=== PATIENT | female | born 1970 | race Two or more races ===

== ENCOUNTER 2017-02-01 05:17 | Inpatient (IN) | payer MEDICARE ==
[2017-01-30 11:37] LABS: BASOPHILS 0.2 % (0-2); EOSINOPHILS 0.3 % (0-7); HEMATOCRIT 35.4 % (36.0-48.0); HEMOGLOBIN 11.3 g/dL (12-16); IMMATURE GRANULOCYTES 0.2 % (0-5); LYMPHOCYTES 11.1 % (15-50); MCH 29.9 pg (26.0-34.0); MCHC 31.9 g/dL (31.0-37.0); MCV 93.7 fL (80.0-100.0); MEAN PLATELET VOLUME 9.4 fL (7.4-10.4); MONOCYTES 4.7 % (2-11); NEUTROPHILS 83.5 % (40-80); PLATELET COUNT 406 10x3/uL (130-400); RBC 3.78 10x6/uL (4.00-5.40); RDW 14.1 % (11.5-14.5); WBC 10.4 10x3/uL (4.8-10.8)
[2017-01-30 11:49] LABS: CALC OSMOLALITY 280 mosm/kg (275-300); CALCIUM 9.4 mg/dL (8.5-10.1); CARBON DIOXIDE 27.1 mmol/L (21.0-32.0); CHLORIDE - SERUM 102 mmol/L (98-107); CREATININE - SERUM 0.8 mg/dL (0.6-1.3); GLUCOSE 105 mg/dL (74-106); POTASSIUM - SERUM 4.2 mmol/L (3.5-5.1); SODIUM 139 mmol/L (136-145); UREA NITROGEN 21 mg/dL (7-18); eGFR NON AFRICAN AMERICAN 82 mL/min (90-120)
[2017-02-01] VITALS (11 sets, daily range): BP systolic 96–124; BP diastolic 63–73; Ht 157.5 cm; Wt 64.4 kg
[~2017-02-01] VITALS: Ht 157.5 cm; Wt 64.4 kg
[2017-02-01 06:42] LABS: HCG URINE NEGATIVE (NEGATIVE)
--- NOTE | 2017-02-01 07:16 | HP ---
PATIENT: BECKY POE MEDICAL RECORD: [id number] ACCOUNT: [id number] LOCATION:[facility] M : 72 ADMISSION DATE: 02/01/17 HISTORY AND PHYSICAL EXAMINATION HISTORY OF PRESENT ILLNESS: This patient is a 46-year-old 0 female with severe menorrhagia, dysmenorrhea and myomas, uterine size 13 weeks. She desires hysterectomy for relief of intractable symptoms. MEDICAL HISTORY: DRUG ALLERGIES: None known. CURRENT MEDICATIONS: Ibuprofen. Pap smear is negative. REVIEW OF SYSTEMS: Denies chest pain or dyspnea. PAST MEDICAL HISTORY: Negative for heart disease, diabetes, hypertension. Negative for . PREVIOUS SURGERIES: Repair of arm fracture in 1997. FAMILY HISTORY: Positive for pancreatic cancer, diabetes, early menopause. SOCIAL HISTORY: The patient is , smoker. No ethanol use. PHYSICAL EXAMINATION: VITAL SIGNS: Weight is 142 pounds, blood pressure 120/60. HEENT: Unremarkable. LUNGS: Clear. HEART: Regular rate and rhythm. BREAST AND PELVIC: Current, within normal limits other than the uterine enlargement. NEUROLOGICAL: Grossly intact. EXTREMITIES: No cyanosis, clubbing or edema. IMPRESSION: Severe menorrhagia, dysmenorrhea and myomas. PLAN: I discussed the laparoscopically-assisted vaginal hysterectomy, as well as a total abdominal hysterectomy. She desires ovarian conservation if possible. I have discussed the risks of surgery, anesthesia, infection, bleeding, injury to other organs, necessitating repair of other organs. All questions were answered. Evaluation under anesthesia with possible laparoscopically-assisted vaginal hysterectomy and possible total abdominal hysterectomy, possible bilateral salpingo-oophorectomy if indicated. TRANSINT:[id number] Voice Confirmation ID: [id number] DOCUMENT ID: [id number] HISTORY AND PHYSICAL [id number] BECKY POE KARTHIK CAAL MD at 0716 CC: [id number] DICTATION DATE: 01/31/171627 POWERHOUSE ELECTRICIAN: 01/31/171947 [facility] [address] [id number]
--- NOTE | 2017-02-01 14:26 | NUR ---
PATIENT WITH 35CC OR CLEAR URINE TO THE BEDISDE DRAINAGE BAG. SHE RATES PAIN A 3
[2017-02-01 15:16] LABS: HEMATOCRIT 30.2 % (36.0-48.0); HEMOGLOBIN 9.3 g/dL (12-16); MCH 29.5 pg (26.0-34.0); MCHC 30.8 g/dL (31.0-37.0); MCV 95.9 fL (80.0-100.0); MEAN PLATELET VOLUME 9.4 fL (7.4-10.4); RBC 3.15 10x6/uL (4.00-5.40); RDW 14.5 % (11.5-14.5); WBC 15.1 10x3/uL (4.8-10.8)
--- NOTE | 2017-02-01 19:45 | NUR ---
AWAKE DURING INITIAL ROUNDS. INTRODUCED SELF. V/S TAKEN--WITHIN NORMAL. ASSESSMENT DONE. STATUS POST GEETA TODAY. LOW TRANSVERSE ABD INCISION WITH ST-STRIPS INTACT. NO BLEEDING NOTED. REFILLED TREVER PACK TO ABD. INCISION. ON DEMEROL ELECTRICIAN JOURNEYMAN WIREMAN FOR PAIN MANAGEMENT. IVF--D5LR TO R WRIST AREA @ 100cc/hr. IV SITE OK. SCD's TO BOTH LOWER EXTREMITIES TO PREVENT DVT. INSTRUCTED ON USE OF INCENTIVE SPIROMETER--WITH RETURN DEMONSTRATION. BRYANT CATH TO DRAINAGE BAG--EMPTIED. IV PUMP CLEARED. SPOUSE IN THE ROOM.
--- NOTE | 2017-02-01 19:55 | NUR ---
TYLENOL 1G PO GIVEN SCHED EVERY 6hrs. TORADOL 30mg IV GIVEN SVHED. EVERY 8hrs. SEE E-OCT.
--- NOTE | 2017-02-01 21:22 | NUR ---
PEPCID 20mg 1tab PO GIVEN SCHEDULED. SEE E-MAR.
[2017-02-02 00:04] VITALS: BP 113/64
--- NOTE | 2017-02-02 00:04 | NUR ---
V/S STABLE. TYLENOL 1G PO GIVEN SCHED. SEE E-MAR. BRYANT CATH BAG EMPTIED. GOOD URINE OUTPUT. IV PUMP CLEARED. REFILLED ICE BAG TO ABD.
--- NOTE | 2017-02-02 02:10 | NUR ---
EYES CLOSED. LEFT UNDISTURBED.
--- NOTE | 2017-02-02 04:06 | NUR ---
TORADOL 30mg IVP GIVEN. SEE E-MAR. V/S STABLE. REFILLED ICE BAG TO ABD INCISION. BRYANT CATH BAG EMPTIED. IV PUMP CLEARED.
[2017-02-02 04:07] VITALS: BP 102/55
--- NOTE | 2017-02-02 05:57 | NUR ---
PERSONAL LINES INSURANCE AGENT HERE TO DRAW AM LAB. SLEPT FAIRLY WELL DURING THE NIGHT. CONTINUING PLAN OF CARE.
--- NOTE | 2017-02-02 06:14 | NUR ---
TYLENOL 1G PO GIVEN FOR PAIN CONTROL. SEE E-MAR. SPOUSE HERE.
[2017-02-02 06:20] LABS: HEMOGLOBIN 7.8 g/dL (12-16); MCH 29.9 pg (26.0-34.0); MCHC 32.5 g/dL (31.0-37.0); MEAN PLATELET VOLUME 9.3 fL (7.4-10.4); RBC 2.61 10x6/uL (4.00-5.40); RDW 14.3 % (11.5-14.5); WBC 13.4 10x3/uL (4.8-10.8)
[2017-02-02 07:15] VITALS: BP 102/54
--- NOTE | 2017-02-02 07:15 | NUR ---
PT WAS RECEIVED LYING IN BED. SHE IS AWAKE AND ALERT AND AT BEDSIDE. BED IS LOW, SIDE RAILS UP X 2 AND CALL LIGHT. GEN- AWAKE AND ALERT. PAIN IS ABOUT A 4. SHE IS HAVING ABDOMINAL PAIN. STATES SHE HAS HAD SOME GAS. LUNGS- CLEAR. HEART- RRR. ABD - SOFT WITH TENDERNESS, BS+. LOW TRANSVERSE INCISION WITH STERI STRIPS NOTED. CLEAN , DRY AND INTACT. EXT- WITH SCD'S NOTED. WARM AND DRY. PULSES PALPABLE. IV NOTED L WRIST WHICH IS PATENT. D5LR INFUSING AT 125 CC/HR. DEMEROL MEDICAL DRIVER 10 MG Q 10 MIN WITH 4 MG LOCKOUT. BRYANT CATH INTACT WITH GOOD URINE OUTPUT.
--- NOTE | 2017-02-02 07:38 | OP ---
PATIENT NAME: BECKY POE MEDICAL RECORD: [id number] :72 LOCATION:[id number] ADMISSION DATE:02/01/17 SURGEON: MARY CAAL MD DATE OF OPERATION: 02/01/2017 PREOPERATIVE DIAGNOSES: Severe dysmenorrhea, menorrhagia and myomas. POSTOPERATIVE DIAGNOSES: Severe dysmenorrhea, menorrhagia and myomas. PROCEDURE: Supracervical hysterectomy and bilateral salpingectomy. SURGEON: Mary Caal MD ANESTHESIA: General. FINDINGS: A 12-14 week size myomatous uterus, normal appearing ovaries, endometriosis located in the right paracervical area. ESTIMATED BLOOD LOSS: 400 cc. COMPLICATIONS OF SURGERY: None. OPERATIVE NOTE: The patient was taken to the OR and under adequate general anesthesia, prepped and draped in the usual manner for abdominal procedures. A transverse incision was made in the lower abdomen and extended through subcutaneous tissue and fascia, dividing muscles in the midline in Pfannenstiel manner; extending an incision from the symphysis pubis to within 6 cm of the umbilicus, avoiding the bladder and abdominal organs. Exploration of the pelvis revealed the above listed findings. The round ligaments were ligated on the right and left using Tracie clamps and #1 chromic suture. The fallopian tubes and utero-ovarian ligaments were then ligated using Tracie clamps and #1 chromic suture. Dissection was carried inferiorly and endometriosis was encountered in the right paracervical area. The uterine arteries were then clamped and made hemostatic using a #1 chromic suture. The decision was made because of the dense adhesions around the cervix to do a supracervical hysterectomy. The uterine fundus was then amputated using electrocautery. Hemostasis was obtained with #1 chromic sutures in the cardinal ligament. The tubes were then removed using 2-0 chromic sutures and electrocautery. Inspection of the ovaries revealed to be within normal limits. The pelvis was copiously irrigated and suctioned and hemostasis was reevaluated. Gilberto was placed in the pelvis at the cardinal ligaments. Sponge and needle counts were correct. Fascial layer was closed in a running noninterlocking #1 PDS loop suture. Skin incision reapproximated in 2 layers, first layer running noninterlocking 2-0 plain gut suture, followed by a subcuticular 2-0 plain gut suture. Dermabond was applied, a Steri-Strip dressing was applied and the patient went to recovery area in good condition. TRANSINT:[id number] Voice Confirmation ID: [id number] DOCUMENT ID: [id number] OPERATIVE REPORT [id number] BECKY POE BRENDA MD at 0738 CC: [id number] DICTATION DATE: 02/01/17 115 DIRECTOR STRATEGY: 02/01/17 1939 ADM IN [facility] [address] [id number]
--- NOTE | 2017-02-02 08:15 | NUR ---
DR CAAL IS HERE TO SEE PT. NEW ORDERS NOTED. PT IS TO RECEIVE 2 UNITS OG PACKED RED BLOOD CELLS THIS AM.
--- NOTE | 2017-02-02 08:38 | NUR ---
1 ST UNIT OF PRBC'S INITIATED. GAGE CRUZ ASSISTED ME AND SIGNED OFF. RUSSIAN LANGUAGE PROFESSOR WAS D'CD. PRBC'S BEING INFUSED WITH NS NOW AT 75 CC/HR.
--- NOTE | 2017-02-02 09:30 | NUR ---
PT IS RECEIVING BLOOD. VSS. TEMP 98.2. PT OFFERS NO COMPLAINTS. PAIN MED WAS GIVEN FOR PAIN OF 3. 0900 MEDS ALSO GIVEN. AT BEDSDIDE. BED IS LOW, SIDE RAILS UP X 2 AND CALL LIGHT IN REACH.
--- NOTE | 2017-02-02 10:00 | NUR ---
BLOOD TRANSFUSION RATE INCREASED TO 125/CC HR. PTS VS HAVE BEEN STABLE AND HAS BEEN AFEBRILE.
--- NOTE | 2017-02-02 10:34 | NUR ---
LISET PAD CHANGE. SMALL AMOUNT OF LIGHT PINKISH DISCHARGE. INCISION CLEAN AND DRY. STERI STRIPS INTACT. PT STILL USING ICE BAG.
--- NOTE | 2017-02-02 11:40 | NUR ---
PT IS LYING IN BED, LOOKING AT PHONE. VSS. 1 ST UNIT OF BLOOD TRANSFUSED. 2ND UNIT RECEIVED AND WILL BE INITIATED. PT TOLERATED WELL WITH NO SIDE EFFECTS.
--- NOTE | 2017-02-02 11:57 | NUR ---
2ND UNIT OF BLOOD STARTED WITH LISANDRO KNOX RN WITNESS. STARTED BLOOD AT 75 CC/HR WITH NS. BED IS LOW, SIDE RAILS UP X 2 AND CALL LIGHT IN REACH. IV PATENT R WRIST. BRYANT INTACT.
--- NOTE | 2017-02-02 12:30 | NUR ---
I TALKED TO DR CAAL ABOUT PT HAVING SEVERAL MEDS ORDERED FOR PAIN AND HER RECEIVING BLOOD. SHE D'CD THE TORADOL BUT INSTRUCTED ME TO CONTINUE THE TYLENOL AND ANSAID AND DEMEROL PO PRN.
--- NOTE | 2017-02-02 13:26 | NUR ---
PT IS RECEIVING HER 2ND UNIT OF PRBC'S VSS. SHE IS LYING IN BED. IV PATENT LEFT WRIST. PATENT. BRYANT INTACT. AND SCD'S INTACT. BED IS LOW, SIDE RAILS UP X 2 AND CALL LIGHT IN REACH.
--- NOTE | 2017-02-02 13:35 | NUR ---
PT IS USING HER INCENTIVE SPIROMETRY.
--- NOTE | 2017-02-02 15:15 | NUR ---
IV WAS SALINE VARSHA AND EXTENSION WAS PLACE FOR SALINE LOCK WITH TIP. ALCOHOL SWAB PLACED ON TIP. SALINE LOCK PATENT. SECURED IN PLACE. BRYANT REMOVED. BALLOON DEFLATED AND REMOVED. 700 CC MEASURED FROM BRYANT. INSTRUCTED PT WE NEEDEDE TO MEASURE NEXT 3 URINES.
--- NOTE | 2017-02-02 15:40 | NUR ---
PT IS UP TO VOID . VOIDED 200 CC.
--- NOTE | 2017-02-02 16:17 | NUR ---
PT IS UP TO BATHROOM AGAIN. VOIDED 300 CC. PT BACK TO BED. BED IS LOW. SIDE RAILS UP X 2 AND CALL LIGHT IN REACH. AT BEDSIDE.
--- NOTE | 2017-02-02 16:51 | NUR ---
PT IS UP TO VOID X 3. VOIDED 400 CC. PT IS AMBULATING IN HALLWAY NOW
--- NOTE | 2017-02-02 17:00 | NUR ---
PT WALKED TO [place] TO HAVE DINNER WITH HER . SHE TOLERATED WELL.
--- NOTE | 2017-02-02 18:35 | NUR ---
PT IS IN THE SHOWER. IN ROOM. INSTRUCTIONS ON INCISION CARE GIVEN.
[2017-02-02 19:10] VITALS: BP 110/64
--- NOTE | 2017-02-02 19:10 | NUR ---
PT RECEIVED GETTING BACK INTO BED AT THIS TIME AFTER SHOWERING. AAOX3. VSS.FAMILY MEMBER AT BEDSIDE. PT REQUESTS MEDICATION FOR PAIN 11/21. ADMINISTERED DEMEROL PO PER ORDERS AT THIS TIME. S/L NOTED TO LEFT WRIST. DRESSING CDI. HEART RRR. LUNG SOUNDS CLEAR BILATERALLY. BOWEL SOUNDS ACTIVE X4 QUADRENTS. ABDOMEN SOFT WITH TENDERNESS. LOW TRANSVERSE INCISION NOTED TO ABDOMEN WITH STERI STRIPS. NO REDNESS, SWELLING, OR PURULENT DRAINAGE NOTED. PEDAL PULSES EQUAL BILATERALLY. SCDS INITIATED TO BLE AT THIS TIME. PT DENIES NEEDS. BED LOW. PHONE AND CALL LIGHT IN REACH. SRX2.
--- NOTE | 2017-02-02 20:08 | NUR ---
PT SITTING UP IN BED TALKING ON PHONE. REASSESSED PTS PAIN. RATES PAIN /. STATES IT HAS DECREASED A LOT. PT DENIES NEEDS. BED LOW. PHONE AND CALL LIGHT IN REACH. SRX2.
--- NOTE | 2017-02-02 21:12 | NUR ---
PM MEDS GIVEN AT THIS TIME. PT DENIES NEEDS. BED LOW. PHONE AND CALL LIGHT IN REACH. SRX2.
--- NOTE | 2017-02-02 22:06 | NUR ---
REASSESSED PTS PAIN AT THIS TIME. RATES PAIN /. REQUESTS BLANKET. DENIES OTHER NEEDS. BED LOW. PHONE AND CALL LIGHT IN REACH. SRX2.
[2017-02-03 00:03] VITALS: BP 109/67
--- NOTE | 2017-02-03 00:04 | NUR ---
PT RESTING QUIETLY AT THIS TIME WITH EYES CLOSED. AROUSED EASILY. ADMINISTERED TYLENOL PO PER ORDERS. PT DENIES NEEDS. BED LOW. PHONE AND CALL LIGHT IN REACH. SRX2.
--- NOTE | 2017-02-03 02:14 | NUR ---
PT RESTING QUIETLY AT THIS TIME WITH EYES CLOSED. RESPIRATIONS EVEN, NON-LABORED. NO ACUTE DISTRESS NOTED AT THIS TIME. BED LOW. PHONE AND CALL LIGHT IN REACH. SRX2.
[2017-02-03 04:05] VITALS: BP 117/65
--- NOTE | 2017-02-03 04:05 | NUR ---
PT RESTING QUIETLY AT THIS TIME WITH EYES CLOSED. AROUSED EASILY. PT DENIES NEEDS AT THIS TIME. BED LOW. PHONE AND CALL LIGHT IN REACH. SRX2.
--- NOTE | 2017-02-03 05:49 | NUR ---
TYLENOL PO GIVEN PER ORDERS AT THIS TIME. PT DENIES NEEDS. BED LOW. PHONE AND CALL LIGHT IN REACH. SRX2.
[2017-02-03 08:47] VITALS: BP 100/53
[2017-02-03 09:29] LABS: HEMATOCRIT 31.4 % (36.0-48.0); HEMOGLOBIN 10.3 g/dL (12-16); MCH 30.1 pg (26.0-34.0); MCHC 32.8 g/dL (31.0-37.0); MCV 91.8 fL (80.0-100.0); MEAN PLATELET VOLUME 9.1 fL (7.4-10.4); RBC 3.42 10x6/uL (4.00-5.40); RDW 15.5 % (11.5-14.5); WBC 9.7 10x3/uL (4.8-10.8)
[2017-02-03] MEDS ORDERED: IBUPROFEN600 MG PO (10:12)
[2017-02-03] MEDS ORDERED: MEPERIDINE HCL50 MG PO (10:12)
--- NOTE | 2017-02-03 12:47 | NUR ---
REVIEWED PATEINT'S DISCHARGE INSTRUCTIONS. DISCUSSED INCISION CARE, PELVIC REST, ACTIVITY RESTRICTIONS AND MEDICATONS. PRESCRIPTIONS GIVEN. AT THE BEDSIDE. WHEELED OUT TO WAITING VEHICLE AFTER REMOVING THE SL FROM HER LEFT WRIST, CATHETER INTACT.
== END 2017-02-03 12:48 | disposition home or self-care (01) | DRG 743 ==
LOC: D.OPS 05:17 → D.PAN 08:30 → D.OPS 08:30 → D.WS 09:30
PROVIDERS: ADMIT Obstetrics & Gynecology
PROC: 0UT70ZZ Resection of Bilateral Fallopian Tubes, Open Approach (ICD-10-PCS; 2017-02-01)
PROC: 0UT90ZZ Resection of Uterus, Open Approach (ICD-10-PCS; principal; 2017-02-01 08:30)
DX: D25.9 Leiomyoma of uterus, unspecified (principal); N80.9 Endometriosis, unspecified